=== PATIENT | female | born 2000 | race Caucasian/White ===

== ENCOUNTER 2020-04-28 22:18 | Emergency (ER) | payer OTHER ==
--- NOTE | 2020-04-28 23:12 | PHYS DOC ---
Adult General Chief Complaint Chief Complaint: UPPER EXTREMITY INJURY [facility] Patient is an otherwise healthy 20-year-old female who presents with a chief complaint of left forearm and wrist pain, 6 out of 10, dull and achy in nature. States she was skiing a couple hours ago, actually going kind of slow but went over little bump and fell onto her left forearm and rolled. Denies any head injury, syncope, nausea, vomiting or any other injuries. States ski maker wood placed it in a splint and sent her to the emergency department. Review of Systems Review of Systems Review of systems otherwise unremarkable outside of noted in HPI. Physical Exam Physical Exam Constitutional: Well developed, well nourished, no acute distress, non-toxic appearance. [] HENT: Normocephalic, atraumatic, bilateral external ears normal, , nose normal. [] Eyes: PERRLA, EOMI, conjunctiva normal, no discharge. [] Neck: Normal range of motion, no tenderness, supple, no stridor. [] Cardiovascular:Heart rate regular rhythm, Lungs & Thorax: No respiratory distress, wheezing Abdomen: no tenderness, Back: No tenderness, Extremities: Patient has some tenderness in the distal left anterior forearm and left first metacarpal. Neurovascularly intact. Capillary refill symmetrical. Gross sensation intact. Gross movement intact. Neurologic: Alert and oriented X 3, normal motor function, normal sensory function, no focal deficits noted. [] Psychologic: Affect normal, judgement normal, mood normal. [] EKG EKG [] Radiology/Procedures Radiology/Procedures []Hand: Bone mineralization is normal. No acute or healed fractures. Soft tissues are unremarkable. Joint spaces are well-maintained. IMPRESSION: 1. Nondisplaced fracture involving the distal metaphysis of the left radius. 2. No acute fracture at the left hand. Heart Score Risk Factors: Risk Factors: DM, Current or recent (<one month) smoker, HTN, HLP, family history of CAD, obesity. Risk Scores: Risk Factors: DM, Current or recent (<one month) smoker, HTN, HLP, family history of CAD, obesity. Course & Med Decision Making Course & Med Decision Making Patient is a 20-year-old female who presents with left forearm and wrist pain after falling while snowboarding Vital signs not concerning. Physical exam noted above. Patient given ice pack and Percocet. Imaging notable for nondisplaced distal metaphysis of the left radius with no other acute fracture and no fracture of the hand. Placed in sugar tong splint. Patient given pain medication for home and advised on pain regimen at home as well. Given contact information for orthopedic surgery and advised to call first thing in the morning to set up a follow-up visit within the next week. Discussed all findings with patient and advised to follow-up as soon as she can with her primary care physician to set up a post ER follow-up visit. Advised to use ibuprofen and Tylenol as well as ice as needed for pain control but should probably take a test at home before starting ibuprofen. Advised to come back to the ED with any new or concerning symptoms. Patient verbalized understanding and agreed with plan of discharge. [] Dragon Disclaimer Dragon Disclaimer This electronic medical record was generated, in whole or in part, using a voice recognition dictation system. Departure Departure: Impression: Primary Impression: Fall Additional Impressions: Left arm pain Radius distal fracture Disposition: 01 DC HOME SELF CARE/HOMELESS Condition: IMPROVED Referrals: PCP,UNKNOWN (PCP) Scripts Oxycodone HCl/Acetaminophen (Percocet 5-325 mg Tablet) 1 Each Tablet 1 TAB PO PRN TID PRN for radius fracture MDD 3 Tablet(s) for 5 Days, #15 TAB 0 Refills Prov: KI ENG MD 04/28/20 Problem Qualifiers KI ENG MD Apr 28, 2020 23:12
[2020-04-28] MEDS ORDERED: oxyCODONE/APAP 5/325 1 TAB TABLET PO ONE (23:30)
--- NOTE | 2020-04-28 23:38 | RAD ---
Exam: Left hand 3 views. Left forearm 2 views INDICATION: Pain, trauma TECHNIQUE: Frontal, lateral and oblique views of the left hand. Frontal and lateral views of the left forearm Comparisons: None FINDINGS: Forearm: Nondisplaced fracture involving the distal metaphysis of the radius. Mild surrounding soft tissue swe lling. No other fractures are seen. Joint spaces are well-maintained. Bone mineralization is normal. Hand: Bone mineralization is normal. No acute or healed fractures. Soft tissues are unremarkable. Joint spa april are well-maintained. IMPRESSION: 1. Nondisplaced fracture involving the distal metaphysis of the left radius. 2. No acute fracture at the left hand. Electronically signed by: Lucia Patton MD (04/28/2020 11:35 PM) [id number]
[2020-04-28] MEDS ORDERED: OXYC-325 PO (23:55)
== END 2020-04-29 00:25 | disposition home or self-care (01) ==
LOC: ER 22:18
DX: S52.502A Unspecified fracture of the lower end of left radius, initial encounter for closed fracture (principal); W18.39XA Other fall on same level, initial encounter; Y93.23 Activity, snow (alpine) (downhill) skiing, snowboarding, sledding, tobogganing and snow tubing; Y92.89 Other specified places as the place of occurrence of the external cause; Y99.8 Other external cause status
CPT/HCPCS: 29125; 73090; 73130; 99284